=== PATIENT | male | born 2000 | race Caucasian/White ===

== ENCOUNTER 2022-04-09 19:55 | Emergency (ER) | payer BC, SELFPAY ==
[2022-04-09 20:19] VITALS: BP 107/72; PULSE 78; RESP 14; TEMP 36.6; O2SAT 99
--- NOTE | 2022-04-09 21:32 | PC.NURSE ---
Pt ambulated to mortgage processing manager and reported he felt better and decided not to be seen. Pt ambulated out in NAD.
== END 2022-04-09 21:32 | disposition left against medical advice (07) ==
LOC: ANHED 21:38
DX: S09.90XA Unspecified injury of head, initial encounter (principal); W22.8XXA Striking against or struck by other objects, initial encounter
CPT/HCPCS: 99199

== ENCOUNTER 2022-04-13 14:29 | Emergency (ER) | payer BC, SELFPAY ==
[2022-04-13 14:35] VITALS: BP 109/65; PULSE 93; RESP 20; TEMP 36.8; O2SAT 98
[2022-04-13 14:50] LABS: Glucose Point of Care 98 mg/dl (65-105)
[2022-04-13 14:58] LABS: Basophils Absolute Auto 0.1 K/mm3 (0.0-0.1); Basophils Percent Auto 0.3 % (0.2-1.2); Eosinophils Percent Auto 0.1 % (0-4.4); Hematocrit 48.7 % (42.0-52.0); Hemoglobin 16.9 g/dL (14.0-18.0); Immature Granulocyte Percent A 0.4 % (0-0.5); Lymphocytes Absolute Auto 0.97 K/mm3 (0.9-3.2); Lymphocytes Percent Auto 4.1 % (18.3-44.2); Mean Corpuscular HGB Conc 34.7 g/dl (32-36); Mean Corpuscular Hemoglobin 29.5 pg (26-34); Mean Platelet Volume 10.2 fl (7.4-10.4); Monocytes Absolute Auto 0.6 K/mm3 (0.1-0.6); Monocytes Percent Auto 2.5 % (2.6-8.5); Neutrophils Absolute Auto 21.9 K/mm3 (1.3-6.7); Neutrophils Percent Auto 92.6 % (45.5-73.1); Platelet Count Result 294 k/mm3 (150-375); Red Blood Count 5.73 M/mm3 (4.6-6.20); Red Cell Distribution Width 11.4 % (11.5-14.5); White Blood Count 23.6 K/mm3 (4.5-10.0)
[2022-04-13 15:11] LABS: Alanine Aminotransferase 21 U/L (6-50); Albumin Level 4.9 g/dL (3.5-5.1); Alkaline Phosphatase 57 U/L (38-126); Anion Gap 12 mmol/L (8-16); Aspartate Amino Transferase 31 U/L (17-59); Bilirubin,Total 1.1 mg/dL (0.2-1.3); Blood Urea Nitrogen 18 mg/dL (9-20); Calcium 9.2 mg/dL (8.4-10.2); Carbon Dioxide 25 mmol/L (22-30); Chloride 103 mmol/L (98-107); Estimated CRCL calculation 104 ml/min; Estimated Glomerular Filt Rate > 60; Glucose 103 mg/dL (65-110); Magnesium 1.9 mg/dL (1.6-2.3); Phosphorus 1.3 mg/dL (2.5-4.5); Potassium 3.5 mmol/L (3.4-5.0); Sodium 140 mmol/L (137-145)
[2022-04-13 15:20] LABS: Ovalocytes 1+ (NORMAL); Platelet Estimate Adequate (Adequate); Schistocytes None Seen (NORMAL)
[2022-04-13 15:32] LABS: Beta-Hydroxybutyrate/Acetoacetate 0.47 mmol/L (0.02-0.27)
[2022-04-13 15:33] LABS: Influenza A QL RT-PCR Negative (Negative); Influenza B QL RT-PCR Negative (Negative); SARS-CoV-2 RNA PCR Negative
[2022-04-13 16:30] VITALS: BP 122/56; PULSE 130; RESP 20; O2SAT 100
--- NOTE | 2022-04-13 17:11 | ED.NAVMDI ---
HPI - Nausea/Vomiting/Diarrhea General Chief complaint: Nausea/Vomiting/Diarrhea Stated complaint: N/V DIABETIC SENSOR MALFUNCTIONING Time Seen by Provider: 04/13/22 16:58 History of Present Illness HPI Narrative: 21-year-old male history of type 1 diabetes presents to the emergency room for evaluation of nausea vomiting and diarrhea since this morning. States has had 7 episodes of nonbloody and occasional bilious vomiting and one episode of diarrhea. Patient also complains of abdominal cramping, which she relates to the vomiting. Denies fevers. Denies any other pain. States today's presenting symptoms are similar to when he was in DKA. Patient states that his mara sensor is malfunctioning, and has been unable to evaluate his blood sugars at home. Related Data Home Medications Medication Instructions Recorded Confirmed insulin lispro 100 unit/mL 04/13/22 subcutaneous solution (Humalog U-100 Insulin) Allergies Allergy/AdvReac Type Severity Reaction Status Date / Time No Known Allergies Allergy Verified 04/13/22 16:28 Review of Systems Review of Systems: CONSTITUTIONAL: Denies fever, chills, or sweats. EYES: Denies visual changes, redness, or discharge. ENT: Denies rhinorrhea, congestion, sore throat, or otalgia. CARDIOVASCULAR: Denies chest pain, palpitations, or edema. RESPIRATORY: Denies cough or dyspnea. GASTROINTESTINAL: Reports abdominal cramping, nausea, vomiting and diarrhea GENITOURINARY: Denies dysuria or hematuria. SKIN: Denies rash or itching. MUSCULOSKELETAL: Denies back pain, joint pain, or myalgia. NEUROLOGIC: Denies headache, numbness, dizziness, or weakness. PSYCHIATRIC: Denies anxiety or depression. [facility] Past Medical History Medical History (Updated 04/13/22 @ 20:24 by Shashi Alaniz, [employer] TENDER ASSISTANT) Type 1 diabetes Exam Narrative: GENERAL: Well-appearing, well-nourished, no physical limitations, and in no acute distress. HEAD: Normocephalic, atraumatic. EYES: Conjunctivae normal, PERRLA and EOMI. ENT: External nose normal, Nares clear, no rhinorrhea or epistaxis. Mucous membranes dry. NECK: Supple. No meningeal signs. No adenopathy or masses. No carotid bruits or JVD CHEST: Clear to auscultation. No respiratory distress. No wheezes rales or rhonchi. HEART: Regular rate and rhythm. No murmur heard. Normal peripheral pulses. ABDOMEN: Soft, nontender, nondistended, normal active bowel sounds. BACK: No CVA tenderness EXTREMITIES: Normal range of motion. No edema. No clubbing or cyanosis SKIN: Warm, dry, no rash. No noted wounds NEURO: No focal deficits. Alert and oriented x3. MAEW. CN's II-XI intact bilaterally, normal gait PSYCH: Cooperative. Normal mood and affect. Course Vital Signs Vital signs: Vital Signs Temperature 36.8 C 04/13/22 14:35 Pulse Rate 93 04/13/22 14:35 Respiratory Rate 20 04/13/22 14:35 Blood Pressure 109/65 04/13/22 14:35 Pulse Oximetry 98 04/13/22 14:35 Oxygen Delivery Room Air 04/13/22 14:35 Temperature 36.8 C 04/13/22 14:35 Pulse Rate 110 H 04/13/22 18:58 Respiratory Rate 16 04/13/22 18:58 Blood Pressure 113/48 L 04/13/22 18:58 Pulse Oximetry 99 04/13/22 18:58 Oxygen Delivery Room Air 04/13/22 14:35 MDM - Nausea/Vomiting/Diarrhea MDM Narrative Medical decision making narrative: 21-year-old male presents emergency room for evaluation nausea vomiting diarrhea. Patient is a type I diabetic. [place] initial WBC count was 23.6 with a mildly elevated lactic acid. No signs of DKA. Patient was given 2 L of normal saline, Zofran and Bentyl, and on reexamination stated that he was feeling much better. Follow-up labs showed a white count of 15 and a lactic within normal limits. Elevated WBC is likely due to the vomiting and being a type I diabetic. Lab Data 04/13/22 14:47 04/13/22 14:47 Labs: Lab Results 04/13/22 04/13/22 04/13/22 Range/Units 14:42 14:47 14:47 WBC 23.6 H (4.
[2022-04-13 17:18] LABS: Glucose Point of Care 85 mg/dl (65-105)
--- NOTE | 2022-04-13 17:18 | PC.NURSE ---
BS was 85 at 1715. RN notified
[2022-04-13] MEDS: SODIUM CHLORIDE 0.9% IV 1,000 ML 999 ML IV CONT ×2 (17:22→18:58)
[2022-04-13] MEDS: DICYCLOMINE HCL INJ 20 MG/2 ML VIAL IM (17:22)
[2022-04-13] MEDS: ONDANSETRON INJ 4 MG/2 ML VIAL IV PUSH (17:22)
[2022-04-13 17:32] LABS: Alveolar/Arterial O2 Gradient 24.5 mmHg; Base Excess ABG 3.4 mEq/l (+/-2.0); Fractional Inspired Oxygen 21 %; HCO3 ABG 25.6 mEq/l (22.0-26.0); Oxygen Content ABG 22.9 %vol (16.0-22.0); Oxygen Saturation ABG 97.4 % (95.0-100.0); Oxyhemoglobin 95.7 % THb (90.0-100.0); PCO2 ABG 32.5 mmHg (35.0-45.0); PO2 ABG 86.3 mmHg (80.0-100.0); PO2 FiO2 Ratio Arterial Blood 4.11 %
[2022-04-13 17:35] LABS: Device ROOM AIR; Modified Allen's Test Pass; Site Drawn RIGHT RADIAL; pH ABG 7.515 (7.350-7.450)
[2022-04-13 17:36] LABS: Lactic Acid Reflex 2.3 mmol/L (0.7-2.0)
--- NOTE | 2022-04-13 17:36 | PC.NURSE ---
pt states he is starting to feel hungry, believes his blood sugar is low. gerardo obtained - 85
[2022-04-13 18:58] VITALS: BP 113/48; PULSE 110; RESP 16; O2SAT 99
[2022-04-13 19:53] LABS: Basophils Percent Auto 0.2 % (0.2-1.2); Hematocrit 42.1 % (42.0-52.0); Hemoglobin 14.5 g/dL (14.0-18.0); Immature Granulocyte Absolute 0.08 K/mm3 (0.00-0.031); Immature Granulocyte Percent A 0.5 % (0-0.5); Mean Corpuscular HGB Conc 34.4 g/dl (32-36); Mean Corpuscular Hemoglobin 29.7 pg (26-34); Mean Corpuscular Volume 86.1 fl (80-100); Mean Platelet Volume 10.3 fl (7.4-10.4); Monocytes Absolute Auto 0.4 K/mm3 (0.1-0.6); Monocytes Percent Auto 2.5 % (2.6-8.5); Neutrophils Absolute Auto 14.2 K/mm3 (1.3-6.7); Neutrophils Percent Auto 94.8 % (45.5-73.1); Platelet Count Result 198 k/mm3 (150-375); Red Blood Count 4.89 M/mm3 (4.6-6.20); Red Cell Distribution Width 11.3 % (11.5-14.5)
[2022-04-13 20:24] LABS: Reflex Lactic Acid Yes or No Add Lactic
== END 2022-04-13 20:50 | disposition home or self-care (01) ==
PROVIDERS: Emergency Medicine; Emergency Provider Nurse Practitioner Family
DX: K52.9 Noninfective gastroenteritis and colitis, unspecified (principal); Z20.822 Contact with and (suspected) exposure to COVID-19; E10.9 Type 1 diabetes mellitus without complications
CPT/HCPCS: 36415; 36600; 80053; 82010; 82805; 82948; 83605; 83735; 84100; 85025; 87636; 96361; 96372; 96374; 99284; J0500; J2405; J7030

== ENCOUNTER 2023-06-27 09:13 | Outpatient (CLI) | payer BC, SELFPAY ==
--- NOTE | ~2023-06-27 | CT_ITS ---
CT Scan of the Chest without Contrast: Clinical Indication: Right supra clavicular mass Technique: Contiguous sections were acquired throughout the chest without intravenous contrast. Dose reduction technique was used on this scan by utilizing automated exposure control and iterative recon struction technique. The dose-length product (DLP) was 181.76 mGy-cm. Findings: There is no evidence of any significant mediastinal, hilar or axillary lymphadenopathy. The mediastin al soft tissues appear normal. There is no evidence of pleural or pericardial effusion. The lungs are clear. No pulmonary nodules or infiltrates are noted. Images through the upper abdomen reveal no abnormalities. Impression: No significant abnormalities seen. No abnormal mass lesion evident at the right supraclavicular regio n and the region of the BB. Reviewed, dictated and finalized at location . Impression: No significant abnormalities seen. No abnormal mass lesion evident at the right supraclavicular region and the region of the BB.
== END 2023-06-27 09:14 ==
PROVIDERS: PCP Family Medicine; Visit Provider Family Medicine
DX: M79.89 Other specified soft tissue disorders (principal)
CPT/HCPCS: 71250

== ENCOUNTER 2023-08-02 13:41 | Outpatient (CLI) | payer BC, SELFPAY ==
--- NOTE | ~2023-08-02 | US_ITS ---
EXAMINATION: US soft tissue head and neck DATE: 08/02/2023 14:03 INDICATION: Mass at the right side of the neck TECHNIQUE: Multiple grayscale and Doppler ultrasound images of the right supraclavicular region of co ncern were obtained. COMPARISON: None FINDINGS: No pathologically enlarged lymphadenopathy or other abnormal masses or fluid collections identified. There is prominent shadowing bone which projects to within 11 mm the skin surface at the region of co ncern which is located slightly cephalad to the right clavicle. 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 A hypoplastic left-sided C7 cervical rib is also present on the CT imaging. IMPRESSION: 1. Palpable abnormality of concern corresponds to a pseudoarticulation between the right first rib an d the right C7 cervical rib. Reviewed, dictated and finalized at location A. IMPRESSION: 1. 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
== END 2023-08-02 13:42 ==
LOC: MICIMG 13:42
PROVIDERS: PCP Nurse Practitioner Family; Visit Provider Nurse Practitioner Family
DX: R22.1 Localized swelling, mass and lump, neck (principal)
CPT/HCPCS: 76536